=== PATIENT | male | born 1960 | race Caucasian/White ===

== ENCOUNTER → 2017-05-21 | Outpatient (CLI) | payer BC | LOC: FIMAGING 08:00 | PROVIDERS: ATTEND Family Medicine | DX: M16.11 Unilateral primary osteoarthritis, right hip (principal); S76.111A Strain of right quadriceps muscle, fascia and tendon, initial encounter ==

== ENCOUNTER 2018-08-07 09:48 | Inpatient (IN) | payer BC ==
--- NOTE | 2018-07-26 17:51 | GHP ---
DATE OF ADMISSION: 08/07/2018 He will be an outpatient for total hip replacement at [facility] on August 07, 2017. HISTORY OF PRESENT ILLNESS: The patient is a 58-year-old man admitted for a right total hip arthropl asty. He started having problems with the right hip about 3 years ago. He made an initial recovery, but then a year later, the pain recurred. The hip is now painful with walking. He has groin pain. He has seen Dr. Aime Palma in [place], and was told that he had too much arthritis to benefit from a rthroscopic surgery. He cannot run or do any high impact activities. He is using Aleve twice a day. He has mild trouble putting on his shoes and socks on the right foot. He has had 2 cortisone injec tions in the right hip. The most recent one was in May, and he did not get any benefit. He has failed nonsurgical treatment and is admitted for a right total hip arthroplasty. PAST MEDICAL HISTORY: He is treated for hypertension. He also has a hereditary thrombocytosis. His platelet count typically runs around 500,000. He has been told by Stalin Douglas that his right femur is shorter than the left. He uses a 10 mm lift in his right heel. No history of heart disease, stents, DVT, hepatitis, MRSA infections, sleep apnea or bleeding problems. CURRENT MEDICATIONS: Lisinopril/hydrochlorothiazide 10 mg/12.5 mg p.o. daily, pantoprazole 40 mg hossein ly. DRUG ALLERGIES: Ibuprofen causes him to "feel crummy." He tolerates other nonsteroidal anti-inflamm atory medications. Metal allergy: None. Latex allergy: None. SOCIAL HISTORY: The patient does not smoke cigarettes and occasionally drinks alcohol. He is an eng ineer. He is . He does not have any other artificial joints. FAMILY HISTORY: Positive for cancer and hypertension. PHYSICAL EXAMINATION: VITAL SIGNS: Height 5 feet 10 inches. Weight 185 pounds. BMI 26.5. GENERAL : He is a fit-appearing man. EYES: Conjunctivae and sclerae are clear. Pupils are round, reactive . MOUTH: Good oral hygiene. No loose teeth. CHEST: Clear. HEART: Regular rhythm. No murmurs. EXTREMITIES: Pertinent findings are limited to his right hip. He has full hip extension and 110 de grees of flexion. External rotation 20 degrees. Internal rotation 0 degrees. Abduction 30 degrees. He has well-developed thigh and buttocks musculature. Films show advanced degenerative arthritis of the right hip. He is enwq-nk-yums. He is 4-5 mm short on the right. IMPRESSION ON ADMISSION: 1. Right hip severe degenerative arthritis. He is prepared for right total hip arthroplasty. 2. Treatment for hypertension. 3. Thrombocytosis. 4. Treatment for stomach acid problems. PLAN: He will undergo a right total hip arthroplasty. The surgery has been described to him, includ ing the risks, complications, expectations, and recovery time. I have discussed with him the issues of dislocation, leg length inequality, infection, and sciatic nerve injury. I have discussed with fidelia ward the differences between the anterior approach and the posterior approach and advised him that I am using the posterior approach. All his questions have been answered, and he consents to surgery. Joon pittman asked him to have 1 preoperative physical therapy appointment prior to hospitalization. /[id number]/MODL
[2018-08-07] MEDS ORDERED: LIDOCAINE 1% 2 ML INJ ID PRN (10:03)
[2018-08-07] MEDS ORDERED: LR 1,000 ML IV ONE (10:03)
[2018-08-07] MEDS ORDERED: FAMOTIDINE 20 MG TAB PO ONE (10:52)
[2018-08-07] MEDS ORDERED: ROPIVACAINE 0.2% 80 MG, EPINEPHrine 0.2 MG in SYRINGE 0 ML IU ONE (10:52)
[2018-08-07] MEDS ORDERED: TRANEXAMIC ACID 1,000 MG in NS 100 ML IV ONE (10:52)
[2018-08-07] MEDS ORDERED: POVIDONE-IODINE 20 ML in SODIUM CL IRRIG SOLUTION 500 ML IRR ONE (10:52)
[2018-08-07] MEDS ORDERED: TRANEXAMIC ACID 3,000 MG in NS (SYRINGE) 50 ML IRR ONE (10:52)
[2018-08-07] MEDS ORDERED: ACETAMINOPHEN 325 MG TAB PO ONE (10:52)
[2018-08-07] MEDS ORDERED: ONDANSETRON 4 MG/2 ML VIAL IVP ONE (10:52)
[2018-08-07] MEDS ORDERED: GABAPENTIN 300 MG CAP PO ONE (10:52)
[2018-08-07] MEDS ORDERED: ceFAZolin 2 GM/DEXTROSE 100 ML IV ONE (10:52)
[2018-08-07] MEDS ORDERED: DEXAMETHASONE 4 MG/ML VIAL IVP ONE (10:52)
[2018-08-07] MEDS ORDERED: MIDAZOLAM 2 MG/2 ML VIAL ONE ×2 (12:13→13:50)
--- NOTE | 2018-08-07 12:25 | PDHPUP ---
History & Physical Update H&P update statement: This history and physical update is based on an assessment of the patient which was completed after admission or registration (within 24 hours), but prior to the surgery/procedure. H&P update: H&P reviewed & patient examined
[2018-08-07] MEDS ORDERED: PROPOFOL/EMULSION 500 MG/50 ML BOTTLE IV ONE (12:39)
[2018-08-07] MEDS ORDERED: LIDOCAINE 2% 5 ML SDV ONE (12:39)
[2018-08-07] MEDS ORDERED: BUPIVACAINE/DEXTROSE 7.5MG/ML 2 ML SPINAL AMP SP ONE ×2 (12:39→12:43)
[2018-08-07] MEDS ORDERED: ceFAZolin 1 GM/5 ML SYR ONE (12:50)
[2018-08-07] MEDS ORDERED: ALBUTEROL 3 ML DEYVIAL IH PRN (14:07)
[2018-08-07] MEDS ORDERED: HYDROCODONE/APAP 5/325 TAB PO PRN (14:07)
[2018-08-07] MEDS ORDERED: DEXAMETHASONE 4 MG/ML VIAL IVP PRN (14:07)
[2018-08-07] MEDS ORDERED: fentaNYL 100 MCG/2 ML INJ IVP PRN (14:07)
[2018-08-07] MEDS ORDERED: LR 500 ML IV PRN (14:07)
[2018-08-07] MEDS ORDERED: NALOXONE HCL 0.4 MG/ML INJ IVP PRN (14:07)
[2018-08-07] MEDS ORDERED: ONDANSETRON 4 MG/2 ML VIAL IVP PRN ×2 (14:07→15:14)
[2018-08-07] MEDS ORDERED: DIAZEPAM 5 MG/ML 1 ML SYR IVP PRN (14:07)
--- NOTE | 2018-08-07 14:07 | PDANEPAE ---
ANE Past Medical History - Cardiovascular History Hx Hypertension: Yes Hx Arrhythmias: No Hx Chest Pain: No Hx Coronary Artery / Peripheral Vascular Disease: No Hx CHF / Valvular Disease: No Hx Palpitations: Yes Cardiovascular History Comment: INTERMITTENT SKIPPED BEATS HE CAN FEEL - Pulmonary History Hx COPD: No Hx Asthma/Reactive Airway Disease: No Hx Recent Upper Respiratory Infection: No Hx Oxygen in Use at Home: No Hx Sleep Apnea: No Sleep Apnea Screening Result - Last Documented: Positive Pulmonary History Comment: 07/16/18 DEVELOPED HEAD COLD IS NOW RESOLVING. PNEUMONIA - Neurologic History Hx Cerebrovascular Accident: No Hx Seizures: No Hx Dementia: No - Endocrine History Hx Diabetes: No - Renal History Hx Renal Disorders: Yes Renal History Comment: NOCTURIA - Liver History Hx Hepatic Disorders: No - Neurological & Psychiatric Hx Hx Neurological and Psychiatric Disorders: No - Cancer History Hx Cancer: No - Congenital Disorder History Hx Congenital Disorders: No - GI History Hx Gastrointestinal Disorders: Yes Gastrointestinal History Comment: HX OF COLON POLYPS. GERD - Other Health History Other Health History: ESSENTIAL THROMBOCYTOSIS FOLLOWED BY DR AUSTIN. TENDONITIS ISSUES LT SHLDR/ROM ISSUES. PATCHES OF DRY SKIN - Chronic Pain History Chronic Pain: Yes (RT HIP) - Surgical History Prior Surgeries: RT ING HERNIA 1985. COLONOSCOPY ANE Review of Systems Review of Systems: - Exercise capacity METS (RN): 4 METS ANE Patient History - Allergies Allergies/Adverse Reactions: ibuprofen Allergy (Unknown, Verified 07/25/18 12:04) FEELS BAD/CLOUDY URINE - Home Medications Home Medications: Ascorbic Acid [Vitamin C 500 mg (*)] 1,000 mg PO HS 07/25/18 [Last Taken ] Aspirin [Aspirin 81mg (*)] 81 mg PO HS 07/25/18 [Last Taken 07/31/18] Calcium Carbonate [Calcium] 1,000 mg PO HS 07/25/18 [Last Taken 07/31/18] Cholecalciferol Vit D3 [Vitamin D3 (*)] 1,000 units PO HS 07/25/18 [Last Taken 07/31/18] Lact Cmb2/S.thermophl/Bif Cmb1 [Vsl#3 Cap (*)] 1 each PO DAILY 07/25/18 [Last Taken 07/31/18] Lisinopril/Hctz 10/12.5 mg [Zestoretic/Prinzide 10/12.5MG (*)] 1 ea PO DAILY 09/11 [Last Taken 08/07/18] Magnesium Oxide [Magnesium Oxide 400 mg (*)] 400 mg PO HS 07/25/18 [Last Taken 07/31/18] Multivitamins [Multivitamin (*)] 1 each PO HS 07/25/18 [Last Taken 07/31/18] Radcliffe-3 Fatty Acids [Fish Oil 1000 mg (*)] 1,000 mg PO HS 07/25/18 [Last Taken 07/31/18] Pantoprazole Sodium [Protonix 40mg (*)] 40 mg PO DAILY 07/25/18 [Last Taken ] Vitamin B Complex [Vitamin B Complex (OTC)] 1 each PO DAILY 07/25/18 [Last Taken 07/31/18] - NPO status NPO Since - Liquids (Date): 08/07/18 NPO Since - Liquids (Time): 08:00 NPO Since - Solids (Date): 08/06/18 NPO Since - Solids (Time): 21:00 - Smoking Hx Smoking Status: Never smoked ANE Labs/Vital Signs - Vital Signs Blood Pressure: 161/97 Heart Rate: 72 Respiratory Rate: 18 O2 Sat (%): 94 Height: 177.8 cm Weight: 83.915 kg ANE Physical Exam - Airway Neck exam: FROM Mallampati Score: Class 1 Mouth exam: normal dental/mouth exam - Pulmonary Pulmonary: no respiratory distress, no rales or rhonchi, clear to auscultation - Cardiovascular Cardiovascular: regular rate and rhythym, no murmur, rub, or gallop - ASA Status ASA Status: II ANE Anesthesia Plan Anesthesia Plan: spinal
[2018-08-07] MEDS ORDERED: NS 500 ML IV PRN (15:14)
[2018-08-07] MEDS ORDERED: METOCLOPRAMIDE 10 MG/2 ML VIAL IVP PRN (15:14)
[2018-08-07] MEDS ORDERED: POLYETHYLENE GLYCOL 3350 17 GM PKT PO PRN (15:14)
[2018-08-07] MEDS ORDERED: PROMETHAZINE HCL 25 MG/ML INJ IVP PRN (15:14)
[2018-08-07] MEDS ORDERED: PROMETHAZINE HCL 25 MG SUPPR PR PRN (15:14)
[2018-08-07] MEDS ORDERED: TEMAZEPAM 15 MG CAP PO PRN (15:14)
[2018-08-07] MEDS ORDERED: MAGNESIUM HYDROXIDE 30 ML UDCUP PO PRN (15:14)
[2018-08-07] MEDS ORDERED: ONDANSETRON DISINTEGRATING 4 MG TAB PO PRN (15:14)
[2018-08-07] MEDS ORDERED: diphenhydrAMINE 25 MG CAP PO PRN (15:14)
[2018-08-07] MEDS ORDERED: LACTULOSE 20 GM/30 ML UDCUP PO PRN (15:14)
[2018-08-07] MEDS ORDERED: traMADol 50 MG TAB PO PRN (15:14)
[2018-08-07] MEDS ORDERED: DIPHENOXYLATE/ATROPINE LOMOTIL 1 TAB PO PRN (15:14)
[2018-08-07] MEDS ORDERED: BISACODYL 10 MG SUPP PR PRN (15:14)
[2018-08-07] MEDS ORDERED: CYCLOBENZAPRINE 10 MG TAB PO PRN (15:14)
--- NOTE | 2018-08-07 15:16 | POSTANESTH ---
Post Anesthetic Evaluation Cardiovascular Status: Normal, Stable, Similar to Pre-Op Cond Respiratory Status: Normal, Stable, Similar to Pre-op Cond. Level of Consciousness/Mental Status: Can Participate in Eval Pain Control: Adequate, Prn Tx Ordered Nausea/Vomiting Control: Adequate, Prn Tx Ordered Complications Possibly Related to Anesthesia: None Noted
[2018-08-07] MEDS ORDERED: LR 1,000 ML IV SCH (15:30)
--- NOTE | 2018-08-07 15:52 | GOP ---
DATE OF OPERATION: 08/07/2018 SURGEON: Miguel Jeff MD IT SUPPORT CONSULTANT: Tomer Rivas and Teodoro Hurt. ANESTHESIA: Combination of Marcaine, spinal, and IV sedation. ANESTHESIOLOGIST: Dr. Amy Roe. PREOPERATIVE DIAGNOSIS: Right hip severe degenerative arthritis. POSTOPERATIVE DIAGNOSIS: Right hip severe degenerative arthritis. PROCEDURE PERFORMED: Right total hip arthroplasty, ceramic femoral head on highly cross-linked polyethylene cup liner. FINDINGS: ESTIMATED BLOOD LOSS: About 400 mL. The sponge and needle count were correct on 2 occasions. I used a Sloan Trident 2 trititanium hemispherical cluster hole hemispherical shell with an outside diameter of 54 mm. The liner was a Willy X3 0-degree highly cross-linked liner with an inside diameter 36 mm. The femoral component was a press-fit Willy standard offset Accolade II stem in size 5. The femoral head was a Willy Biolox Delta ceramic head with a 0 neck length and a 36 mm outside diameter. Tomer Rivas and Teodoro Hurt acted as surgical assistants. Their assistance was a medical necessity for safe completion of the procedure. DESCRIPTION OF PROCEDURE: The patient was given 2 g of IV Ancef preoperatively within 60 minutes of surgery. He also received 1000 mg of IV tranexamic acid preoperatively. He was placed on the operating room table and given spinal anesthesia with Marcaine by Dr. Roe. He was then placed supine and given IV sedation. A Husain catheter was not used. He wore a MARTELL stocking and SCD on the nonoperative leg. He was rolled to the left lateral decubitus position. The position was secured with the pegboard table attachment. An axillary roll was used, and all pressure points were carefully padded. I was careful to lock his pelvis in a rigid vertical position. His perineum was isolated with plastic adhesive drapes. The right hip and right lower extremity were prepped with ChloraPrep. They were draped free using sterile sheets, stockinette, and Ioban plastic drapes. The [employer] time-out was performed to verify the correct surgical side and site and the correct patient identity. The [place] time-out was also performed. I made a 5-inch straight oblique posterolateral hip skin incision. The subcutaneous tissues were sharply divided, and hemostasis was obtained using electrocautery. His fascia tonja was identified and split distally along the axis of its fibers. I then curved posteriorly and proximally, and split the fascia of the gluteus crissy and bluntly split the muscle fibers in line with their orientation. The Charnley self-retaining retractor was inserted. His sciatic nerve was located, partially exposed, and protected throughout the procedure. The external rotators and the posterior hip capsule were divided as separate layers at the base of the femoral neck, tagged, and reflected posteriorly. A smooth _1/8 inch Steinmann pin was inserted vertically into the ilium, superior to the acetabulum. An 1/8-inch drill bit was inserted vertically into the greater trochanter and parallel to the first pin. The distance between the 2 was measured for leg length reference. His femoral head was dislocated posteriorly. Severe degenerative changes were present on the femoral head. His femoral neck was osteotomized at the appropriate level and inclination. I was careful to preserve all the posterior capsule and most of the anterior capsule. The remnant of his damaged labrum was excised. I prepared the femur first. This allowed me to label fuser tender the amount of natural femoral neck anteversion. This, in turn, allowed me to later determine the correct amount of cup anteversion. He had approximately 15 degrees of natural femoral neck anteversion. The canal was opened laterally with a box chisel. I hand broached sequentially up to a size 5. I used the Willy Accolade II size 5 broach as a trial stem. I was careful to lateralize adequately. Appropriate retractors were inserted to expose the acetabulum. The acetabulum was reamed sequentially up to 54 mm. I selected the 54 mm Sloan Tritanium Trident II cluster hole hemispherical shell. This was tapped securely into place in the proper degree of inclination anteversion. I used the transverse acetabular ligament and other acetabular bony landmarks to help me properly orient the cup. I performed a series of trial reductions to determine length and stability. I obtained intraoperative cross-table AP pelvis x-ray. This shows good sizing and position of the femoral component. His leg lengths looked equal. He was 3 or 4 mm short, and I was intentionally lengthening him a small amount. The flush or 0 degree cup liner gave me good stability. The 0 degree Sloan X3 highly cross-linked polyethylene liner was inserted and tapped securely into place. The Sloan Accolade II stem in a size 5 with standard offset was inserted press-fit and was very tight. I did 1 final trial reduction and confirmed that the 0 neck length with a 36 mm head was the proper combination. The Willy Biolox Delta ceramic head with an outside diameter 36 mm and a neck length of 0 mm was tapped securely onto the clean trunnion. The acetabulum was irrigated, cleaned, and the hip was reduced 1 final time. He had excellent anterior and posterior stability and appropriate length. 40 mL of the joint anesthetic cocktail were injected into the capsule, the deep musculature, and the subcutaneous tissues around the skin edges. The joint was thoroughly irrigated 1 final time with a dilute Betadine solution. 50 mL of tranexamic acid solution were irrigated into the wound and left in place. His sciatic nerve was reinspected and looked unharmed. The external rotators and the posterior hip capsule were repaired in separate layers with #2 FiberWire sutures through drill holes in the greater trochanter. The fascia tonja was closed first with 2 [id number] #2 FiberWire sutures followed by a running #2 barbed Ethicon Stratafix PDO suture. Subcutaneous tissues were closed in layers with interrupted 2-0 Monocryl sutures followed by a running 0 barbed Ethicon Stratafix Monoderm suture. The skin was closed with a running 3-0 barbed Ethicon Stratafix Monoderm subcuticular suture. The skin edges were reapproximated and sealed with Dermabond glue. The wound was covered with a large piece of waterproof Mepilex surgical dressing. The sacral Mepilex dressing was also applied. A long-leg MARTELL stocking and SCD were applied to his right lower extremity. He wore a stocking and SCD on the opposite leg during the procedure. An abduction pillow was placed between his knees. He was awakened from anesthesia and rolled to the supine position on his [facility]. He was taken to PACU in satisfactory condition. There were no recognized intraoperative complications. /[id number]/MODL MTDD
--- NOTE | 2018-08-07 16:15 | PDMN ---
Medical Necessity Medical necessity: [facility] [place]: S560 hip arthroplasty OP: ANNAMARIE approved for INYARIEL scherer
[2018-08-07] MEDS: KETOROLAC 15 MG/1 ML SDV IVP SCH ×2 (17:46→23:39)
[2018-08-07] MEDS: oxyCODONE IR 5 MG TAB PO PRN ×2 (17:47→20:31)
[2018-08-07] MEDS: ACETAMINOPHEN 325 MG TAB PO SCH ×2 (17:47→23:39)
[2018-08-07] MEDS: ASPIRIN 325 MG TAB PO SCH (21:55)
[2018-08-07] MEDS: SENNOSIDES/DOCUSATE SODIUM TAB PO SCH (21:56)
[2018-08-07] MEDS: ceFAZolin 2 GM/DEXTROSE 100 ML IV SCH (21:56)
[2018-08-07] MEDS: FAMOTIDINE 20 MG TAB PO SCH (21:56)
[2018-08-08] MEDS: KETOROLAC 15 MG/1 ML SDV IVP SCH ×2 (05:33→11:23)
[2018-08-08] MEDS: ceFAZolin 2 GM/DEXTROSE 100 ML IV SCH (05:33)
[2018-08-08] MEDS: ACETAMINOPHEN 325 MG TAB PO SCH ×2 (05:33→11:20)
[2018-08-08 07:34] VITALS: BP 115/74
[2018-08-08] MEDS ORDERED: FERROUS SULFATE 325 MG TAB PO SCH (08:00)
[2018-08-08] MEDS: SENNOSIDES/DOCUSATE SODIUM TAB PO SCH (08:49)
[2018-08-08] MEDS: ASPIRIN 325 MG TAB PO SCH (08:49)
[2018-08-08] MEDS: FAMOTIDINE 20 MG TAB PO SCH (08:50)
[2018-08-08] MEDS ORDERED: PANTOPRAZOLE SODIUM 40 MG TAB PO SCH (09:00)
[2018-08-08] MEDS ORDERED: LISINOPRIL/HCTZ 10/12.5 MG 1 EA TAB PO SCH (09:00)
--- NOTE | 2018-08-08 09:30 | SOAPPROG ---
SOAP Progress Note Assessment/Plan: Assessment: Afebrile. Awake and alert. He arrived to the floor too late yesterday afternoon to have physical therapy. That is why he had to stay overnight. Mild pain. He has been up and walking in the [place]. Sciatic nerve intact. His dressing is dry. Postop films look excellent. Plan: Discharge today. 08/08/18 0 Objective: Vital Signs Temp Pulse Resp BP Pulse Ox 37.1 C 64 18 115/74 92 08/08/18 07:33 08/08/18 07:33 08/08/18 07:33 08/08/18 07:33 08/08/18 07:33 Laboratory Results 08/08/18 04:20 08/07/18 08/08/18 08/09/18 05:59 05:59 05:59 Intake Total 2115 700 Output Total 1050 Balance 1065 700 ICD10 Worksheet Patient Problems: Problems Problem Status Onset Osteoarthritis of right hip Acute
--- NOTE | 2018-08-08 11:11 | GDS ---
POSTOPERATIVE DIAGNOSIS: Right hip severe arthritis. DISCHARGE DIAGNOSIS: Right hip severe arthritis. OPERATION PERFORMED: 08/07/2018, right total hip arthroplasty. POSTOPERATIVE COMPLICATIONS: None. CONDITION ON DISCHARGE: Improved. DESCRIPTION OF HOSPITAL COURSE: The patient was admitted to the hospital on the morning of surgery. His admission H and H were 17.1 and 52.1. Platelet count was 487,000. Electrolytes, BUN and creati nine were all normal. The same day, under a combination of Marcaine, spinal, and IV sedation, he und erwent a right total hip arthroplasty. Postoperatively, he was treated with multimodal DVT prophylax is, including aspirin. On the first postoperative day, his hemoglobin and hematocrit were 14.7 and 4 4.0. He was seen by Physical Therapy and made excellent progress with ambulation and stairs. By the time of discharge, he was afebrile, his wound was clean and dry, and he was independent walking with crutches. DISPOSITION: The patient is discharged to his home. He will go to outpatient physical therapy next week. Continue MARTELL stockings for 1 week. He may progress to full weightbearing on the right as tole rated. Use an abduction pillow in bed for 3 weeks. Continue aspirin 325 mg p.o. daily for 21 days. He has prescriptions for Celebrex, tramadol and oxycodone for pain control. I will see him back in the office on August 27, 2018. If there are any problems, he is to call me at the office. /[id number]/MODL
[2018-08-08] MEDS: oxyCODONE IR 5 MG TAB PO PRN (12:09)
--- NOTE | 2018-08-08 12:14 | ASMTCMCOM ---
CM Note CM Note Notes: Pt had planned knee surgery, PT rec home/outpatient. No CM d/c needs identified. Pt resides with spouse. Date Signed: 08/08/2018 12:14 PM Electronically Signed By:LUIS Bruce
== END 2018-08-08 12:13 | disposition home or self-care (01) | DRG 470 ==
LOC: F3N 09:48
PROVIDERS: ADMIT Orthopaedic Surgery; ATTEND Orthopaedic Surgery
PROC: 0SR904Z Replacement of Right Hip Joint with Ceramic on Polyethylene Synthetic Substitute, Open Approach (ICD-10-PCS; principal; 2018-08-07 11:00)
DX: M16.11 Unilateral primary osteoarthritis, right hip (principal); I10 Essential (primary) hypertension; R35.1 Nocturia; D47.3 Essential (hemorrhagic) thrombocythemia
CPT/HCPCS: 97116-GP; 97161-GP; 97165-GO; 97535-GO; J0171; J0690; J1100; J1885; J2250; J2405; J2704; J2795